=== PATIENT | female | born 1980 | race Caucasian/White ===

== ENCOUNTER 2024-04-13 22:44 | Observation (INO) | payer BC, SELFPAY ==
--- NOTE | ~2024-04-13 | XR_ITS ---
XR abdomen/kub 1V Ordering provider: Bill Astudillo MD History: . Renal calculus . Comparison: None. FINDINGS: BOWEL: Nonobstructive bowel gas pattern. ORGANOMEGALY: None. SIGNIFICANT PATHOLOGIC CALCIFICATIONS: Multiple right kidney stones with the largest measures 1.4 cm. Left double-J stent. Tiny stone is possibly seen in the distal left ureter. Left kidney stones are h ighly suggestive with faint calcification OTHER: No free air is seen under the diaphragm. Right sacroiliitis. IMPRESSION: Right kidney stones. Left double-J stent with possible stone in the left lower ureter. Possible left kidney stones with fa int calcification. Reviewed, dictated and finalized at location A. IMPRESSION: Right kidney stones. Left double-J stent with possible stone in the left lower ureter. Possible left kidney stones with faint calcification.
--- NOTE | ~2024-04-13 | XR_ITS ---
EXAMINATION: XR retrograde pyelo w/stent LT DATE: 04/14/2024 14:50 CDT INDICATION: LT SIDE RETROGRADE, STENT PLACEMENT . TECHNIQUE: 3 fluoroscopic images of the abdomen were obtained during left retrograde pyelography with stent placement, performed by Dylan Taylor MD. I was not present during the procedure. Fluoros copy exposure time was 7.5 seconds. Air Kerma 3.95 mGy. DAP 0.04547 mGym2. COMPARISON: None FINDINGS/IMPRESSION: Fluoroscopic documentation of left retrograde pyelography with stent placement. Please refer to the o perative note for complete procedural details. Reviewed, dictated and finalized at location K.
[2024-04-13 21:50] VITALS: BP 151/94; PULSE 58; RESP 16; TEMP 36.1; O2SAT 100; BMI 41.2
--- NOTE | 2024-04-13 22:15 | ADMGEN ---
This patient, Britany Zarco, was admitted to 3 [facility] Surg Room 313-01. Patient/family oriented to hospital policies and general routines including ID bracelet, bed and alarms, visiting hours, pain management, procedures, bathroom and other care routines, personal items, smoking policy, room service/diet, and visiting hours. Information on how to activate the Rapid Response Team has been discussed. Patient/Family are encouraged to report perceived risks to care and to ask questions if they do not understand what they are told or what they should do.
--- NOTE | 2024-04-13 22:47 | PM.IMHP ---
H&P: HPI History of Present Illness Date/Time: 04/13/24 22:45 Chief Complaint: Obstructing left ureteral stone. Narrative: This is a very pleasant 44-year-old female with history of a kidney stone age 17, diverticulitis, gastric bypass surgery, idiopathic thrombocytopenic purpura status post splenectomy, type 2 diabetes mellitus, hypertension, and who is being directly admitted to the medical floor from an outside emergency department for urology consultation after she was found to have an obstructing left ureteral stone with hydronephrosis. The patient provides the following history. She reports fairly sudden onset of colicky, left flank pain on Saturday. She felt better yesterday however the pain returned today and was much more severe. Associated symptoms include nausea, vomiting, and dysuria. She presented to the outside facility where a CT of the abdomen and pelvis showed a 6 mm calculus in the proximal to mid left ureter with moderate left-sided hydroureter and hydronephrosis with surrounding inflammation as well as additional bilateral nonobstructing stones. Urine showed 2+ bacteria, 2+ blood, 10 to 20 WBC, and 50 to 100 RBC. Labs were significant for WBC count of 16.58, hemoglobin 10.1, MCV 74.8, platelet 502, sodium 138, potassium 4.4, BUN 10, creatinine 0.80, glucose 220. She was given a g of ceftriaxone, 25 mcg fentanyl, 4 mg morphine, 4 mg ondansetron, and a L of normal saline. Transfer was initiated to [place] for urology consultation. At the time my evaluation she continues to have colicky pain but is better controlled. She denies fever, current nausea, hematuria, and history of multidrug resistant organisms. Review of Systems Review of Systems: 12 systems were reviewed and are negative except for as per HPI. [facility], [facility] Past Medical History Medical History (Updated 04/13/24 @ 23:14 by Debra Blanco PA-C) Allergies Depression with anxiety Diverticulitis Gastroesophageal reflux disease Hypertension Idiopathic thrombocytopenic purpura Kidney stones Type 2 diabetes mellitus Surgical History Surgical History (Updated 04/13/24 @ 23:14 by Debra Blanco PA-C) History of abdominoplasty History of bilateral breast reduction surgery History of splenectomy For ITP. History of tonsillectomy History of weight loss surgery Gastric sleeve. Family History Family History (Updated 06/17/24 @ 23:15 by Debra Blanco PA-C) Other COPD (chronic obstructive pulmonary disease) Diabetes mellitus Family history of malignant neoplasm Heart disease Kidney stones Macular degeneration Renal disease Social History Social History (Updated 04/13/24 @ 23:15 by Debra Blanco PA-C) Social History: Surrogate medical decision maker: Suzanne Zarco, mother. Code status: Full code. Smoking status: Never smoker Alcohol intake: never Substance use: never Do You Feel Safe in your Home?: Yes Lack of Transportation: No Lack of Food: Never True Current Housing: I Have Housing Concerned About Future Housing: No Difficulty Paying Gas/Electric Bills: No Difficulty Paying for Meds: No Currently Unemployed: No Education: Bachelor's Degree Difficulty w/ Childcare or Family Care: No Additional living arrangements comments: The patient lives in [place] in her own home. She has 2 cats. Additional occupation/education comments: [employer]. Spiritual care concerns: No Meds Home Medications and Allergies Home Medications Medication Instructions Recorded Confirmed Type glimepiride 2 mg tablet 2 mg PO QAM 04/13/24 04/13/24 History hydroxyzine HCl 10 mg tablet 10 mg PO TID PRN Anxiety 04/13/24 04/13/24 History lamotrigine 25 mg tablet 50 mg PO BID 04/13/24 04/13/24 History metformin 500 mg tablet 500 mg PO BIDWM 04/13/24 04/13/24 History metoprolol tartrate 50 mg tablet 50 mg PO BID 04/13/24 04/13/24 History montelukast 10 mg tablet 10 mg PO QHS 04/13/24 04/13/24 History
[2024-04-13] MEDS: HYDROcodone/acetaminophen (*CRX) 5-325 MG TABLET 1 TAB PO (23:29)
[2024-04-13] MEDS: SODIUM CHLORIDE 0.9% IV 1,000 ML 100 ML IV CONT (23:30)
[2024-04-14] VITALS (12 sets, daily range): BP systolic 104–157; BP diastolic 50–86; PULSE 58–80; RESP 13–20; TEMP 36–36.7; O2SAT 97–100
[2024-04-14] MEDS: METOPROLOL TARTRATE 50 MG TAB PO ×2 (03:11→20:43)
[2024-04-14] MEDS: TOPIRAMATE 100 MG TABLET PO ×2 (03:11→17:51)
[2024-04-14] MEDS: MONTELUKAST SODIUM 10 MG TABLET PO ×2 (03:11→20:43)
[2024-04-14] MEDS: PANTOPRAZOLE 40 MG TABLET PO ×2 (03:11→20:43)
[2024-04-14 06:35] LABS: Hematocrit 32.1 % (37.0-47.0); Hemoglobin 9.3 g/dL (12.0-15.0); Mean Corpuscular Hemoglobin 22.5 pg (26-34); Mean Corpuscular Volume 77.7 fl (80-100); Mean Platelet Volume 10.7 fl (7.4-10.4); Platelet Count Result 461 k/mm3 (150-375); Red Blood Count 4.13 M/mm3 (4.2-5.4); White Blood Count 17.1 K/mm3 (4.5-10.0)
[2024-04-14 06:58] LABS: Anion Gap 7 mmol/L (4-12); Blood Urea Nitrogen 8 mg/dL (7-17); Calcium 8.1 mg/dL (8.4-10.2); Carbon Dioxide 21 mmol/L (22-30); Chloride 112 mmol/L (98-107); Estimated CRCL calculation 130 ml/min; Estimated Glomerular Filt Rate > 60; Glucose 118 mg/dL (65-110); Potassium 3.5 mmol/L (3.4-5.0); Sodium 140 mmol/L (137-145)
[2024-04-14 07:05] LABS: Magnesium 1.9 mg/dL (1.6-2.3)
[2024-04-14] MEDS: HYDROmorphone HCL INJ (*CRX) 1 MG/ML SYR 0.5 MG IV PUSH ×2 (08:53→20:42)
[2024-04-14 09:04] LABS: Glucose Point of Care 136 mg/dl (65-105)
--- NOTE | 2024-04-14 09:42 | WPDURCON ---
Assessment and Plan Assessment and plan (1) Left ureteral stone: Code(s): N20.1 - Calculus of ureter Status: Acute Assessment and Plan: 6 mm proximal to mid left ureteral stone with moderate hydroureteronephrosis Plan for cystoscopy, left retrograde pyelogram, left ureteral stent placement, possible left ureteroscopy/laser lithotripsy this afternoon with Dr. Astudillo. Continue NPO diet Discussed risks and benefits of procedure. Understands temporary nature of stent and need for appropriate outpatient follow-up. She is agreeable to proceed (2) Hydroureteronephrosis: Code(s): N13.30 - Unspecified hydronephrosis Status: Acute Assessment and Plan: Planning for stent placement as above (3) Kidney stones: Code(s): N20.0 - Calculus of kidney Status: Acute Assessment and Plan: Noted to have small bilateral nonobstructing stones. Will continue to observe (4) Abnormal urinalysis: Code(s): R82.90 - Unspecified abnormal findings in urine Status: Acute Assessment and Plan: UA at outside facility is abnormal, culture is pending. She is asymptomatic. Continue empiric antibiotics while awaiting culture results Urology Consult Note HPI Date Seen: 04/14/24 Requesting Physician: Dylan Taylor MD Primary Care Provider: PHYSICIAN NOT ON STAFF Consult Narrative Narrative: Britany Zarco is a 44 year old female with a history of kidney stones that have passed spontaneously who is being seen in consultation for evaluation of a left ureteral stone. She presented to an outside ER on 04/13/2024 with complaints of abdominal pain. She reported 2 days prior had some diffuse abdominal pain that said on her left side. The next day the pain resolved but unfortunately yesterday returns suddenly with associated nausea, vomiting, fever, and hematuria. No dysuria. On arrival to outside ER, her vital signs were stable and she was afebrile, WBC 16.5, creatinine 0.7, UA with trace leukocytes, 2+ blood, 10-20 WBC. Urine culture from outside facility is pending CT of the abdomen/pelvis was completed which showed a 6 mm left proximal to mid ureteral stone with moderate hydronephrosis and hydroureter with surrounding inflammation. She was transferred to this facility for urology evaluation. At the time of my evaluation, the patient reports feeling much improved. Nausea and vomiting have resolved. Pain is better controlled. Denies dysuria or hematuria. Her vital signs are stable and she remains afebrile. WBC is 17.1. Creatinine remains stable at 0.6. She remains NPO. Will plan for cystoscopy with left retrograde pyelogram, left ureteral stent placement, possible ureteroscopy today with DrRichard Can see his. Discussed details of the procedure with patient and reviewed risks and benefits. She is agreeable to proceed. Review of Systems Review of Systems: All systems reviewed & are unremarkable except as noted in HPI and below PMFSH Past Medical History Medical History (Updated 04/14/24 @ 09:47 by Halie Triplett PA-C) Allergies Depression with anxiety Diverticulitis Gastroesophageal reflux disease Hypertension Idiopathic thrombocytopenic purpura Kidney stones Type 2 diabetes mellitus Surgical History Surgical History (Updated 04/13/24 @ 23:14 by Debra Blanco PA-C) History of abdominoplasty History of bilateral breast reduction surgery History of splenectomy For ITP. History of tonsillectomy History of weight loss surgery Gastric sleeve. Family History Family History (Updated 04/13/24 @ 23:15 by Debra Blanco PA-C) Other COPD (chronic obstructive pulmonary disease) Diabetes mellitus Family history of malignant neoplasm Heart disease Kidney stones Macular degeneration Renal disease Social History Social History (Updated 04/13/24 @ 23:15 by Debra Blanco PA-C) Social History: Surrogate medical decision maker: Faiza
--- NOTE | 2024-04-14 10:02 | PC.NURSE ---
aalfonso meds on hold due to NPO status
[2024-04-14 12:09] LABS: Glucose Point of Care 136 mg/dl (65-105)
--- NOTE | 2024-04-14 12:25 | WPDHPUPDATE1 ---
History and Physical Update Update Date/Time: 04/14/24 12:25 History and Physical has been reviewed, including an updated exam of the patient. There are NO changes in the patient's condition. Risks, benefits, and alternatives have been discussed and questions answered. Patient agrees to proceed with procedure.
[2024-04-14] MEDS: LACTATED RINGERS 1,000 ML 30 ML IV CONT (13:15)
--- NOTE | 2024-04-14 13:20 | PC.NURSE ---
pt to surgery for scheduled procedure
--- NOTE | 2024-04-14 14:13 | WPDANESEPPF ---
Anes - Initial Pre Proc Eval Procedure: Operation Date: 04/14/24 14:30 Proposed Procedures p Cystoscopy, Left Retrograde Pyelogram, Left Stent Placement, Possible Left Ureteroscopy, Possible Left Stone Extraction, Possible Holmium Laser Procedure - Bill Astudillo MD Date/Time: 04/14/24 14:13 Surgeon: Dylan Taylor MD Pre Op Diagnosis: Obstructing Ureteral Stone Patient Data Age: 44 Gender: F Height: 1.68 m Weight: 115.8 kg Last Vital Signs Temp 36.4 C L 04/14/24 04:54 Pulse 59 L 04/14/24 04:54 Resp 16 04/14/24 04:54 BP 105/61 04/14/24 04:54 Pulse Ox 97 04/14/24 04:54 O2 Del Method Room Air 04/14/24 08:45 Allergies Allergy/AdvReac Type Severity Reaction Status Date / Time aspirin AdvReac Severe Other Verified 04/13/24 22:53 NSAIDS (Non-Steroidal AdvReac Severe Other Verified 04/13/24 22:53 Anti-Inflamma Home Medications Medication Instructions Recorded Confirmed Type glimepiride 2 mg tablet 2 mg PO QAM 04/13/24 04/13/24 History hydroxyzine HCl 10 mg tablet 10 mg PO TID PRN Anxiety 04/13/24 04/13/24 History lamotrigine 25 mg tablet 50 mg PO BID 04/13/24 04/13/24 History metformin 500 mg tablet 500 mg PO BIDWM 04/13/24 04/13/24 History metoprolol tartrate 50 mg tablet 50 mg PO BID 04/13/24 04/13/24 History montelukast 10 mg tablet 10 mg PO QHS 04/13/24 04/13/24 History omeprazole 40 mg capsule,delayed 40 mg PO QHS 04/13/24 04/13/24 History release topiramate 100 mg tablet 100 mg PO BID 04/13/24 04/13/24 History vilazodone 40 mg tablet 40 mg PO BIDWM 04/13/24 04/13/24 History Laboratory Tests 04/14/24 04/14/24 04/14/24 06:12 08:58 12:05 WBC 17.1 H K/mm3 (4.5-10.0) RBC 4.13 L M/mm3 (4.2-5.4) Hgb 9.3 L g/dL (12.0-15.0) Hct 32.1 L % (37.0-47.0) MCV 77.7 L fl (80-100) MCH 22.5 L pg (26-34) MCHC 29.0 L g/dl (32-36) RDW 19.0 H % (11.5-14.5) Plt Count 461 H k/mm3 (150-375) MPV 10.7 H fl (7.4-10.4) Sodium 140 mmol/L (137-145) Potassium 3.5 mmol/L (3.4-5.0) Chloride 112 H mmol/L (98-107) Carbon Dioxide 21 L mmol/L (22-30) Anion Gap 7 mmol/L (4-12) BUN 8 mg/dL (7-17) Creatinine 0.60 L mg/dL (0.7-1.0) Estim Creat Clear Calc 130 ml/min Estimated GFR > 60 (59 - ) Glucose 118 H mg/dL (65-110) POC Capillary Glucose 136 H mg/dl 136 H mg/dl (65-105) (65-105) Hemoglobin A1c 8.0 H % (<5.7) Calcium 8.1 L mg/dL (8.4-10.2) Magnesium 1.9 mg/dL (1.6-2.3) Patient hx anesthesia problems: none Family hx anesthesia problems: none Results Review: All pre-operative results and documents have been reviewed as part of the pre-operative evaluation. [facility] Past Medical History Medical History Allergies Depression with anxiety Diverticulitis Gastroesophageal reflux disease Hypertension Idiopathic thrombocytopenic purpura Kidney stones Type 2 diabetes mellitus Surgical History Surgical History History of abdominoplasty History of bilateral breast reduction surgery History of splenectomy For ITP. History of tonsillectomy History of weight loss surgery Gastric sleeve. Family History Family History Other COPD (chronic obstructive pulmonary disease) Diabetes mellitus Family history of malignant neoplasm Heart disease Kidney stones Macular degeneration Renal disease Social History Social History Social History: Surrogate medical decision maker: Suzanne Zarco, mother. Code status: Full code. Smoking status: Never smoker Alcohol intake: never Substance use: ne
--- NOTE | 2024-04-14 14:42 | PM.IMPN ---
Progress Note: A&P Assessment and Plan (1) Left ureteral stone: Code(s): N20.1 - Calculus of ureter Status: Acute Assessment and Plan: Imaging showed a 6 mm mid to proximal left ureteral stone with associated hydroureteronephrosis and associated fat stranding. Urology consulted. Plan for stent placement today. Analgesics as needed. NPO for stent placement. Regular diet after. (2) Hydroureteronephrosis: Code(s): N13.30 - Unspecified hydronephrosis Status: Acute Assessment and Plan: Secondary to ureteral stone. See #1 (3) Urinary tract infection: Code(s): N39.0 - Urinary tract infection, site not specified Status: Acute Assessment and Plan: UA reported in with trace leukocytosis, 2+ blood, 10-20 wbc's although there is no record of this and patient's EMR. Requesting records release. She has been started on ceftriaxone No prior culture for comparison. UC pending. (4) Type 2 diabetes mellitus: Code(s): E11.9 - Type 2 diabetes mellitus without complications Status: Acute Assessment and Plan: Insulin Lispro sliding scale, Accu-checks qAc and HS and Hold oral hypoglycemics Initiate hypoglycemic precautions Hemoglobin A1c 8.0 (5) Hypertension: Code(s): I10 - Essential (primary) hypertension Status: Acute Assessment and Plan: continue home medication Subjective Date/time seen: 04/14/24 14:42 Interval history: patient's pain has improved. Plan for ureteral stent placement this afternoon. Requesting records release from facility she transferred from. She denies any chest pain, shortness a breath, nausea, vomiting dysuria or hematuria. Exam Narrative: GENERAL: Comfortable, no acute distress HENMT: moist mucous membranes EYES: EOM intact b/l NECK: no lymphadenopathy RESPIRATORY: clear to auscultation, no increased respiratory effort CARDIO: Regular rate and rhythm GI: soft, nontender, bowel sounds present SKIN/EXTREMITIES: no rashes, no edema, no redness or tenderness NEURO: PROM intact, answers questions appropriately, A&O x4 Objective Data Vital Signs Vital Signs: Vital Signs - 24 hr 04/13/24 22:55 04/13/24 21:50 04/14/24 03:11 Temperature 96.9 F L Pulse Rate 58 L 80 Respiratory Rate 16 Blood Pressure 151/94 H Pulse Oximetry 100 Oxygen Delivery Room Air 04/14/24 04:54 04/14/24 08:45 Temperature 97.5 F L Pulse Rate 59 L Respiratory Rate 16 Blood Pressure 105/61 Pulse Oximetry 97 Oxygen Delivery Room Air Intake/Output Intake/Output: Intake & Output 04/11/24 04/12/24 04/13/24 04/14/24 23:59 23:59 23:59 23:59 Intake Total 530 Output Total 800 Balance -270 Meds/Results Medications: Active Medications Generic Name Dose Route Start Last Admin Trade Name Freq PRN Reason Stop Dose Admin Acetaminophen 650 mg 04/13/24 22:44 Acetaminophen 325 Mg Tablet PO Q4H PRN Mild Pain (1-3) or Fever Hydrocodone Bitart/Acetaminophen 1 tab 04/13/24 22:44 04/13/24 23:29 Hydrocodone/Acetaminophen (*Crx) 5-325 Mg Tablet PO 1 tab Q4H PRN Administration Moderate Pain (4-6) Dextrose 12.5 gm 04/13/24 23:18 Dextrose 50% 25 Gm/50 Ml Syringe IV PUSH PRN PRN Hypoglycemia Protocol Fentanyl Citrate 25 mcg 04/14/24 14:14 Fentanyl Citrate Inj (*Crx) 100 Mcg/2 Ml Vial IV PUSH Q2M PRN Pain Glimepiride 2 mg 04/14/24 09:00 Glimepiride 2 Mg Tablet PO QAM CINDY Glucagon 1 mg 04/13/24 23:18 Glucagon For Inj 1 Mg Vial IM PRN PRN Hypoglycemia Protocol Glucose 15 gm 04/13/24 23:18 Glucose Oral Gel 15 Gm Of Glucse In 37.5 Gm Tube PO PRN PRN Hypoglycemia Protocol Hydromorphone HCl 0.5 mg 04/13/24 23:16 04/14/24 08:53 Hydromorphone Hcl Inj (*Crx) 1 Mg/Ml Syr IV PUSH 0.5 mg Q3H PRN Administration Pain Rated 7-10 H
[2024-04-14] MEDS: LIDOCAINE HCL 2% GEL UROJET 10 ML PKG MUCOUS MEM (14:53)
--- NOTE | 2024-04-14 15:05 | W.PM.PROC2 ---
Procedure Note - Detailed Date of Procedure 04/14/24 Pre-op Diagnosis Obstructing left Ureteral Stone 6 mm Post-op Diagnosis Same Procedure Performed Cystoscopy, left retrograde pyelogram, left ureteroscopy with stone extraction, left ureteral stent placement 4.8 Faroese contour Surgeon Bill Astudillo MD Anesthesia General Description of Procedure Patient was taken to the operative suite correctly identified. Once anesthesia was obtained she was placed in dorsal lithotomy position and prepped and draped usual sterile fashion. Nineteen Faroese scope was inserted into the bladder. There are no tumors noted. The left ureteral orifice was cannulated with a guidewire. I was able to gently place a mini flexible ureteral scope without any difficulty. No purulence was noted. The stone was visualized. Using escape basket was easily retrieved and sent for analysis. Pyelogram was then performed to confirm placement of the stent. 4.8 Faroese contour stent was placed with the proximal end coiled in the left renal pelvis and the distal end in the bladder. Bladder was drained. 2% viscous lidocaine was inserted into the urethra and patient is taken to recovery room stable condition. Most likely will be discharged tomorrow in follow-up in a week's time for stent removal in the office. This completes dictation. Please send a copy of op note to office Estimated Blood Loss 0 Urine Output 800 Drains Yes Packing No Pathology Yes Complications No immediate complications Condition Stable Disposition PACU
[2024-04-14 15:27] LABS: Glucose Point of Care 126 mg/dl (65-105)
[2024-04-14] MEDS: fentaNYL CITRATE INJ (*CRX) 100 MCG/2 ML VIAL 25 MCG IV PUSH ×3 (15:49→16:15)
[2024-04-14 17:37] LABS: Glucose Point of Care 166 mg/dl (65-105)
[2024-04-14] MEDS: HYDROcodone/acetaminophen (*CRX) 5-325 MG TABLET 1 TAB PO (17:50)
[2024-04-14] MEDS: ONDANSETRON INJ 4 MG/2 ML VIAL IV PUSH (17:50)
[2024-04-14] MEDS: lamoTRIgine 50 MG TABLET PO (17:51)
[2024-04-14] MEDS: INSULIN ASPART (*BKC) 100 UNITS/ML SUB-Q (20:42)
[2024-04-14 21:23] LABS: Glucose Point of Care 263 mg/dl (65-105)
[2024-04-15] MEDS: fentaNYL CITRATE INJ (*CRX) 100 MCG/2 ML VIAL 25 MCG IV PUSH (00:24)
[2024-04-15] MEDS: HYDROmorphone HCL INJ (*CRX) 1 MG/ML SYR 0.5 MG IV PUSH (05:53)
[2024-04-15 06:21] LABS: Hematocrit 35.4 % (37.0-47.0); Hemoglobin 10.1 g/dL (12.0-15.0); Mean Corpuscular HGB Conc 28.5 g/dl (32-36); Mean Corpuscular Hemoglobin 22.1 pg (26-34); Mean Corpuscular Volume 77.5 fl (80-100); Mean Platelet Volume 10.8 fl (7.4-10.4); Platelet Count Result 557 k/mm3 (150-375); Red Blood Count 4.57 M/mm3 (4.2-5.4); Red Cell Distribution Width 19.4 % (11.5-14.5); White Blood Count 17.3 K/mm3 (4.5-10.0)
[2024-04-15 06:29] LABS: Anion Gap 8 mmol/L (4-12); Blood Urea Nitrogen 8 mg/dL (7-17); Calcium 8.6 mg/dL (8.4-10.2); Carbon Dioxide 21 mmol/L (22-30); Chloride 110 mmol/L (98-107); Estimated CRCL calculation 130 ml/min; Estimated Glomerular Filt Rate > 60; Glucose 161 mg/dL (65-110); Potassium 3.9 mmol/L (3.4-5.0); Sodium 139 mmol/L (137-145)
[2024-04-15 08:04] LABS: Glucose Point of Care 149 mg/dl (65-105)
[2024-04-15] MEDS: GLIMEPIRIDE 2 MG TABLET PO (09:13)
[2024-04-15] MEDS: lamoTRIgine 50 MG TABLET PO (09:13)
[2024-04-15] MEDS: PANTOPRAZOLE 40 MG TABLET PO (09:13)
[2024-04-15] MEDS: METOPROLOL TARTRATE 50 MG TAB PO (09:13)
[2024-04-15] MEDS: TOPIRAMATE 100 MG TABLET PO (09:13)
[2024-04-15] MEDS: HYDROcodone/acetaminophen (*CRX) 5-325 MG TABLET 1 TAB PO ×2 (09:17→15:22)
--- NOTE | 2024-04-15 09:35 | WPDUROPN2 ---
Progress Note: A&P Assessment and Plan (1) Left ureteral stone: Code(s): N20.1 - Calculus of ureter Status: Acute Assessment and Plan: 6 mm proximal to mid left ureteral stone with moderate hydroureteronephrosis Underwent cystoscopy, left retrograde pyelogram, left ureteroscopy with stone extraction left ureteral stent placement on 04/14/[address] Astudillo. Tolerated procedure well Okay for discharge urologic standpoint. Will arrange outpatient follow-up in 1 week for stent removal (2) Hydroureteronephrosis: Code(s): N13.30 - Unspecified hydronephrosis Status: Acute Assessment and Plan: Status post left ureteral stent placement as above (3) Kidney stones: Code(s): N20.0 - Calculus of kidney Status: Acute Assessment and Plan: Noted to have small bilateral nonobstructing stones. Will continue to observe (4) Abnormal urinalysis: Code(s): R82.90 - Unspecified abnormal findings in urine Status: Acute Assessment and Plan: Urine culture at outside facility is negative. Subjective Subjective Date/Time Seen: 04/15/24 09:35 Interval history: Britany is feeling well today. She has some left flank soreness and complains of bladder spasms. Reports mild dysuria. Reports light pink urine with some small clots. She is tolerating her diet. Denies nausea, vomiting, fever, or chills Review of Systems Review of Systems: All systems reviewed & are unremarkable except as noted in HPI and below Exam Narrative: General: Awake, alert, comfortable, no acute distress HEENT: Normocephalic, atraumatic, sclerae anicteric Respiratory: Normal respiratory effort, no accessory muscle use Abdomen: Nondistended, soft, nontender Skin: Normal coloration, warm and dry Neurologic: No focal neuro deficits noted Psychiatric: Appropriate mood and affect, judgment and insight intact Objective Data Vital Signs Vital Signs: Vital Signs - 24 hr 04/14/24 15:11 04/14/24 15:26 04/14/24 15:41 Temperature 97.2 F L Pulse Rate 63 63 64 Respiratory Rate 18 14 16 Blood Pressure 104/50 L 120/63 155/80 H Pulse Oximetry 97 100 100 Oxygen Delivery Simple Face Mask Simple Face Mask Room Air Oxygen Flow Rate 10 10 04/14/24 15:57 04/14/24 16:12 04/14/24 16:28 Temperature Pulse Rate 62 66 65 Respiratory Rate 13 13 16 Blood Pressure 148/78 H 145/86 H 155/84 H Pulse Oximetry 100 100 97 Oxygen Delivery Room Air Room Air Room Air Oxygen Flow Rate 04/14/24 17:39 04/14/24 20:43 04/14/24 20:00 Temperature 96.8 F L Pulse Rate 58 L 60 60 Respiratory Rate 20 20 Blood Pressure 157/79 H Pulse Oximetry 100 100 Oxygen Delivery Room Air Oxygen Flow Rate 04/14/24 19:00 Temperature 98.1 F Pulse Rate 64 Respiratory Rate 17 Blood Pressure 131/82 Pulse Oximetry 100 Oxygen Delivery Oxygen Flow Rate Intake/Output Intake/Output: Intake & Output 04/12/24 04/13/24 04/14/24 04/15/24 23:59 23:59 23:59 23:59 Intake Total 1370 350 Output Total 1600 Balance -230 350 Meds/Results Medications: Active Medications Generic Name Dose Route Start Last Admin Trade Name Freq PRN Reason Stop Dose Admin Acetaminophen 650 mg 04/13/24 22:44 Acetaminophen 325 Mg Tablet PO Q4H PRN Mild Pain (1-3) or Fever Hydrocodone Bitart/Acetaminophen 1 tab 04/13/24 22:44 04/15/24 09:17 Hydrocodone/Acetaminophen (*Crx) 5-325 Mg Tablet PO 1 tab Q4H PRN Administration Moderate Pain (4-6) Dextrose 12.5 gm 04/13/24 23:18 Dextrose 50% 25 Gm/50 Ml Syringe IV PUSH PRN PRN Hypoglycemia Protocol Fentanyl Citrate 25 mcg 04/14/24 14:14 04/14/24 16:15 Fentanyl Citrate Inj (*Crx) 100 Mcg/2 Ml Vial IV PUSH 25 mcg Q2M PRN Administration Pain Glimepiride 2 mg 04/14/24 09:00 04/15/24 09:13 Glimepiride 2 Mg Tablet PO 2 mg QAM CINDY Administration Glucagon 1 mg 04/13/24
--- NOTE | 2024-04-15 10:45 | WPDANESPN ---
Anes - Prog Note Post-Op Date/Time: 04/15/24 10:45 Cardiovascular status: normal Respiratory status: normal Airway patency: baseline Mental status: baseline Post-Op hydration status: normal Vital Signs: Last Vital Signs Temp 36.7 C 04/14/24 19:00 Pulse 60 04/14/24 20:43 Resp 20 04/14/24 20:00 BP 131/82 04/14/24 19:00 Pulse Ox 100 04/14/24 20:00 O2 Del Method Room Air 04/14/24 20:00 O2 Flow Rate 10 04/14/24 15:26 Pain Score (VAS): 01/04 I/O: Intake & Output 04/14/24 04/15/24 04/15/24 23:59 07:59 15:59 Intake Total 840 350 240 Balance 840 350 240 Laboratory Tests 04/15/24 05:56 04/15/24 05:56 04/14/24 04/14/24 04/14/24 12:05 15:25 17:33 WBC RBC Hgb Hct MCV MCH MCHC RDW Plt Count MPV Sodium Potassium Chloride Carbon Dioxide Anion Gap BUN Creatinine Estim Creat Clear Calc Estimated GFR Glucose POC Capillary Glucose 136 H 126 H 166 H Calcium 04/14/24 04/15/24 04/15/24 20:24 05:56 07:45 WBC 17.3 H RBC 4.57 Hgb 10.1 L Hct 35.4 L MCV 77.5 L MCH 22.1 L MCHC 28.5 L RDW 19.4 H Plt Count 557 H MPV 10.8 H Sodium 139 Potassium 3.9 Chloride 110 H Carbon Dioxide 21 L Anion Gap 8 BUN 8 Creatinine 0.60 L Estim Creat Clear Calc 130 Estimated GFR > 60 Glucose 161 H POC Capillary Glucose 263 H 149 H Calcium 8.6 Post-procedural complaints: none Patient Feedback: Patient satisfied with anesthetic care.
[2024-04-15 11:42] LABS: Glucose Point of Care 122 mg/dl (65-105)
--- NOTE | 2024-04-15 12:17 | PM.DS ---
DS: Admitting Diagnosis Discharge Date 04/15/24 Admitting Diagnosis left ureteral stone DS: Discharge Diagnosis Discharge Diagnosis (1) Left ureteral stone: Code(s): N20.1 - Calculus of ureter Status: Acute (2) Hydroureteronephrosis: Code(s): N13.30 - Unspecified hydronephrosis Status: Acute (3) Kidney stones: Code(s): N20.0 - Calculus of kidney Status: Acute (4) Abnormal urinalysis: Code(s): R82.90 - Unspecified abnormal findings in urine Status: Acute DS: Summary Hospital Course Hospital Course: This is a very pleasant 44-year-old female with history of a kidney stone age 17, diverticulitis, gastric bypass surgery, idiopathic thrombocytopenic purpura status post splenectomy, type 2 diabetes mellitus, hypertension, and who is being directly admitted to the medical floor from an outside emergency department for urology consultation after she was found to have an obstructing left ureteral stone with hydronephrosis. CT of the abdomen and pelvis showed a 6 mm calculus in the proximal to mid left ureter with moderate left-sided hydroureter and hydronephrosis with surrounding inflammation as well as additional bilateral nonobstructing stones. Urine showed 2+ bacteria, 2+ blood, 10 to 20 WBC, and 50 to 100 RBC. Labs were significant for WBC count of 16.58, hemoglobin 10.1, MCV 74.8, platelet 502, sodium 138, potassium 4.4, BUN 10, creatinine 0.80, glucose 220. She was given a g of ceftriaxone, 25 mcg fentanyl, 4 mg morphine, 4 mg ondansetron, and a L of normal saline. Transfer was initiated to [facility] for urology consultation. According to the patient she always has elevated white blood cell count between 16 and 18 due to her ITP. Her white blood cell count has stayed this range during hospitalization. Her Urology placed left ureteral stent on 04/14/2024. Patient did pass some clots and have some urinary discomfort after stent placement. Repeat x-ray post stent placement showed stent in left ureter with possible stone in left low ureter and right kidney stones largest measuring 1.4 cm. Urology okay patient for discharge with a follow-up with them in 1 week. Called hospital patient had been transfer from and her urine culture came back as mixed genital daniel. She will not be sent home on any antibiotics at this time. Her labs and vital signs are stable when she is medically cleared For discharge at this time. Time Spent with Patient Time attestation: Total time spent providing and/or coordinating discharge services: Exam Narrative: GENERAL: Comfortable, no acute distress HENMT: moist mucous membranes EYES: EOM intact b/l NECK: no lymphadenopathy RESPIRATORY: clear to auscultation, no increased respiratory effort CARDIO: Regular rate and rhythm GI: soft, nontender, bowel sounds present SKIN/EXTREMITIES: no rashes, no edema, no redness or tenderness NEURO: PROM intact, answers questions appropriately, A&O x4 DS: Data Data Completed and Pending Pending studies at discharge: Pending at discharge 04/14/24 15:01 Surgical [PTH] Routine Labs on day of discharge: Labs from last 24 hours 04/15/24 04/15/24 04/15/24 11:35 07:45 05:56 WBC 17.3 H RBC 4.57 Hgb 10.1 L Hct 35.4 L MCV 77.5 L MCH 22.1 L MCHC 28.5 L RDW 19.4 H Plt Count 557 H MPV 10.8 H Sodium 139 Potassium 3.9 Chloride 110 H Carbon Dioxide 21 L Anion Gap 8 BUN 8 Creatinine 0.60 L Estim Creat Clear Calc 130 Estimated GFR > 60 Glucose 161 H POC Capillary Glucose 122 H 149 H Calcium 8.6 04/14/24 04/14/24 04/14/24 20:24 17:33 15:25 WBC RBC Hgb Hct MCV MCH MCHC RDW Plt Count MPV Sodium Potassium Chloride Carbon Dioxide Anion Gap BUN Creatinine Estim Creat Clear Calc Estimated GFR Glucose POC Capillary Glucose 263 H 166 H 126 H Calcium Dis
== END 2024-04-15 15:26 | disposition home or self-care (01) ==
PROVIDERS: Internal Medicine Critical Care Medicine; Physician Assistant; Urology; Admitting Provider Internal Medicine; Visit Provider Internal Medicine
PROC: (CPT 52352; principal; 2024-04-14 14:30)
DX: N13.2 Hydronephrosis with renal and ureteral calculous obstruction (principal); R82.90 Unspecified abnormal findings in urine; I10 Essential (primary) hypertension; E11.9 Type 2 diabetes mellitus without complications; K21.9 Gastro-esophageal reflux disease without esophagitis; D69.3 Immune thrombocytopenic purpura; F41.8 Other specified anxiety disorders; Z98.84 Bariatric surgery status; Z79.84 Long term (current) use of oral hypoglycemic drugs; E66.01 Morbid (severe) obesity due to excess calories; Z68.41 Body mass index [BMI] 40.0-44.9, adult
CPT/HCPCS: 52332; 52352; 36415; 74018; 74420; 80048; 82365; 82948; 83036; 83735; 85027; 88300; A9270; C1758; C1769; C2617; G0378; G0379; J0696; J1100; J1170; J1815; J2250; J2405; J2704; J3010; J7030; J7120; Q9966